=== PATIENT | female | born 1990 | race Hispanic/Latino ===

== ENCOUNTER 2022-04-18 13:01 | Inpatient (IN) | payer MEDICAID, OTHER, SELFPAY ==
[~2022-04-18 13:01] MED LIST: Lidocaine 2% MPF 10 ML AMP (For Epidural Use) ONE
[2022-04-18] MEDS ORDERED: Promethazine HCl 25 MG/ML VIAL IM PRN ×2 (13:20→23:07)
[2022-04-18] MEDS ORDERED: hydrALAZINE 20 MG/ML VIAL SLOW IVP PRN (13:20)
[2022-04-18] MEDS ORDERED: Ondansetron PF 4 MG/2 ML Vial IVP PRN ×2 (13:20→23:07)
[2022-04-18] MEDS ORDERED: Carboprost 250 MCG/ML AMP IM PRN (13:23)
[2022-04-18] MEDS ORDERED: Ibuprofen 800 MG TAB PO PRN (13:23)
[2022-04-18] MEDS ORDERED: Methylergonovine 0.2 MG/ML VIAL IM PRN (13:23)
[2022-04-18] MEDS ORDERED: Lidocaine 1% (PF) 30 ML VIAL SC PRN (13:23)
[2022-04-18] MEDS ORDERED: Misoprostol 200 MCG TAB PR PRN (13:23)
[2022-04-18] MEDS ORDERED: NS w/ Oxytocin 30 units 500 ML IV SCH ×2 (13:30→18:30)
[2022-04-18 14:53] VITALS: BMI 38.0
[2022-04-18 14:53] LABS: Hemoglobin 13.9 g/dL (12.0-15.5); Mean Corpuscular HGB CONC 34.9 g/dL (32.0-36.0); Mean Corpuscular Hemoglobin 31.3 pg (27.0-33.0); Mean Corpuscular Volume 89.6 fl (81.6-98.3); Platelet Count 115 10x3/uL (150-450); RBC Distribution Width 13.4 % (11.5-14.5); Red Blood Cell (RBC) Count 4.44 10x6/uL (3.90-5.03)
[2022-04-18] MEDS ORDERED: Misoprostol 100 MCG TAB VAG SCH (15:00)
[2022-04-18 15:03] LABS: Hep B Surf Ag Non-Reactive S/CO (NonReactive); Syphilis Antibody Nonreactive (Nonreactive); Syphilis Antibody Index 0.05 S/CO (<1.00 Non-Reactive)
[2022-04-18 15:04] LABS: HBSAg Index 0.16 S/CO (0-0.99)
[2022-04-18 15:42] LABS: Bilirubin Neg (Negative); Blood, Urine Negative (Negative); Clarity Clear (Clear); Glucose, Urine (Dipstick) Normal (Negative); Ketone, Urine Negative (Negative); Leukocyte Negative (Negative); Nitrite Negative (Negative); Protein, Urine (Dipstick) Negative (Neg-Trace); Specific Gravity, Urine 1.005 (1.002-1.036); Urobilinogen Normal mg/dL (Less than 2)
[2022-04-18 15:49] LABS: Urine Culture Reflex No No
[2022-04-18 16:01] LABS: RBC/HPF None Seen HPF (0-3); WBC/HPF None Seen HPF (0-3)
[2022-04-18 16:02] LABS: Bacteria/HPF None Seen HPF (None Seen); Squamous Epithelial None Seen HPF (0-3)
[2022-04-18 16:48] LABS: ALT (SGPT) 16 U/L (8-55); AST (SGOT) 19 U/L (5-34); Albumin 3.6 g/dL (3.5-5.0); Alkaline Phosphatase 134 U/L (40-110); Anion Gap 16 mmol/L (10-20); BUN (Urea Nitrogen) 9 mg/dL (7.0-18.7); Bilirubin, Total 0.4 mg/dL (0.2-1.2); Calc. Creatinine Clearance 220 mL/min (70-130); Calcium 8.9 mg/dL (7.8-10.44); Carbon Dioxide 18 mmol/L (22-29); Chloride 105 mmol/L (98-107); Globulin 2.9 g/dL (2.4-3.5); Glucose 88 mg/dL (70-105); Potassium 4.2 mmol/L (3.5-5.1); Protein, Total 6.5 g/dL (6.0-8.3); Sodium 135 mmol/L (136-145)
[2022-04-18 19:32] LABS: SARS-CoV-2 NAA Rapid Test Not Detected (NotDetected)
[2022-04-18] MEDS ORDERED: Fentanyl 2 mcg/Bup 0.1% Cadd 100 ML ONE (22:35)
[2022-04-18] MEDS: Lactated Ringer's 1,000 ML IV SCH (22:58)
[2022-04-18] MEDS ORDERED: Moisturizing Cream (Eucerin) 113 GM JAR TOP PRN (23:07)
[2022-04-18] MEDS ORDERED: Acetaminophen 325 MG TAB PO PRN (23:07)
[2022-04-18] MEDS ORDERED: diphenhydrAMINE 50 MG/ML VIAL IVP PRN (23:07)
[2022-04-18] MEDS ORDERED: ePHEDrine Sulfate 50 MG/10 ML VIAL SLOW IVP PRN (23:07)
[2022-04-18] MEDS ORDERED: Naloxone HCl 0.4 mg/ml Vial IVP PRN ×2 (23:07)
[2022-04-18] MEDS ORDERED: Lactated Ringer's 500 ML IV PRN (23:07)
[2022-04-18] MEDS ORDERED: Fentanyl 2 mcg/Bupivacaine 0.1% Cassette 100 ML EPIDURAL SCH (23:15)
[2022-04-18] MEDS ORDERED: Communication Order-Pharmacy FS SCH (23:15)
[2022-04-19] MEDS ORDERED: Methylergonovine 0.2 MG/ML VIAL IM PRN (05:04)
[2022-04-19] MEDS ORDERED: Bisacodyl 10 MG SUPP PR PRN (05:04)
[2022-04-19] MEDS ORDERED: hydrALAZINE 20 MG/ML VIAL SLOW IVP PRN (05:04)
[2022-04-19] MEDS ORDERED: NS w/ Oxytocin 30 units 500 ML IV SCH (05:04)
[2022-04-19] MEDS ORDERED: Milk Of Magnesia 30 ML UDCUP PO PRN (05:04)
[2022-04-19] MEDS ORDERED: Boostrix 0.5 ML (Tdap) VIAL IM ONE (05:04)
[2022-04-19] MEDS ORDERED: Misoprostol 200 MCG TAB VAG PRN (05:04)
[2022-04-19] MEDS: Ibuprofen 800 MG TAB PO SCH ×3 (08:04→21:47)
[2022-04-19] MEDS: Ferrous Sulfate 325 MG TAB PO SCH ×2 (08:09→08:13)
[2022-04-19] MEDS: Docusate 100 MG CAP PO SCH ×2 (09:15→21:47)
[2022-04-19] MEDS: Lactated Ringer's 1,000 ML IV SCH (20:56)
[2022-04-20] MEDS: Ibuprofen 800 MG TAB PO SCH (05:51)
[2022-04-20] MEDS: Ferrous Sulfate 325 MG TAB PO SCH (07:13)
[2022-04-20] MEDS: Docusate 100 MG CAP PO SCH (08:42)
[2022-04-20 13:01] VITALS: BP 100/60; TEMP 98.4
== END 2022-04-20 14:00 | disposition home or self-care (01) | DRG 806 ==
LOC: CSHLD 13:01 → CSHPP 04-19 05:50
PROVIDERS: ADMIT Student in an Organized Health Care Education/Training Program; ATTEND Student in an Organized Health Care Education/Training Program
PROC: 10E0XZZ Delivery of Products of Conception, External Approach (ICD-10-PCS; principal; 2022-04-19)
PROC: 3E0P7VZ Introduction of Hormone into Female Reproductive, Via Natural or Artificial Opening (ICD-10-PCS; 2022-04-19)
DX: O41.03X0 Oligohydramnios, third trimester, not applicable or unspecified (principal); O99.12 Other diseases of the blood and blood-forming organs and certain disorders involving the immune mechanism complicating childbirth; Z37.0 Single live birth; O24.420 Gestational diabetes mellitus in childbirth, diet controlled; D69.6 Thrombocytopenia, unspecified; O36.63X0 Maternal care for excessive fetal growth, third trimester, not applicable or unspecified; O99.214 Obesity complicating childbirth; E66.9 Obesity, unspecified; O71.82 Other specified trauma to perineum and vulva; O32.2XX0 Maternal care for transverse and oblique lie, not applicable or unspecified; Z20.822 Contact with and (suspected) exposure to COVID-19; Z3A.38 38 weeks gestation of pregnancy; Z79.899 Other long term (current) drug therapy; Z79.82 Long term (current) use of aspirin; Z91.018 Allergy to other foods; Z87.440 Personal history of urinary (tract) infections
CPT/HCPCS: 36415; 36416; 51702; 80053; 81001; 85027; 86780; 86850; 86900; 86901; 87340; J2590; J7120; U0002